=== PATIENT | male | born 1985 | race American Indian/Alaskan Native ===

== ENCOUNTER 2021-08-13 01:25 | Emergency (ER) | payer SELFPAY | END 2021-08-13 02:28 | disposition left against medical advice (07) | LOC: ED 01:25 | DX: R05.9 Cough, unspecified (principal); Z53.21 Procedure and treatment not carried out due to patient leaving prior to being seen by health care provider ==

== ENCOUNTER 2021-08-13 04:30 | Emergency (ER) | payer SELFPAY ==
[2021-08-13 04:46] VITALS: BP 107/73
== END 2021-08-13 06:10 | disposition left against medical advice (07) ==
LOC: ED 04:30
DX: L60.0 Ingrowing nail (principal); Z53.21 Procedure and treatment not carried out due to patient leaving prior to being seen by health care provider